=== PATIENT | male | born 2000 | race Caucasian/White ===

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

== ENCOUNTER 2020-02-20 15:15 | Emergency (ER) | payer OTHER ==
--- NOTE | 2020-02-20 15:26 | ED ---
GI/ HPI - HPI Summary HPI Summary: Pt. is a 19 y.o male who presents to the ER for left testicular pain that started today. Pt. states he noticed a mild pain in his left testicle that increased throughout the day. Pt. notes intermittent dysuria and penile discharge as well. Denies fever, abd. pain. Notes nausea. Sxs are moderate in severity. No current modifying factors. - History of Current Complaint Chief Complaint: EDUrogenitalProblems Time Seen by Provider: 02/20/20 15:24 Stated Complaint: PAIN IN LT TESTICLE PER PT Hx Obtained From: Patient Pain Intensity: 6 - Allergy/Home Medications Allergies/Adverse Reactions: Allergies Allergy/AdvReac Type Severity Reaction Status Date / Time No Known Allergies Allergy Verified 02/20/20 15:20 Home Medications: Home Medications DOXYcycline CAP(*) [DOXYcycline 100MG CAP(*)] 100 mg PO BID #20 cap 02/20/20 [Rx ] PMH/Surg Hx/FS Hx/Imm Hx Previously Healthy: Yes Endocrine/Hematology History: Denies: Hx Diabetes, Hx Thyroid Disease Cardiovascular History: Denies: Hx Hypertension Respiratory History: Denies: Hx Asthma, Hx Chronic Obstructive Pulmonary Disease (COPD) GI History: Denies: Hx Ulcer Infectious Disease History: No Infectious Disease History: Denies: Hx Hepatitis, Hx Human Immunodeficiency Virus (HIV), Traveled Outside the [place] in Last 30 Days - Family History Known Family History: Positive: None - Denies FHx, Non-Contributory Negative: Cardiac Disease, Hypertension, Diabetes - Social History Occupation: Unemployed Lives: With Family Alcohol Use: Rare Hx Substance Use: Yes Substance Use Type: Reports: Marijuana Substance Use Comment - Amount & Last Used: weekly Hx Tobacco Use: No Smoking Status (MU): Never Smoked Tobacco Review of Systems Constitutional: Negative Negative: Fever Positive: Nausea. Negative: Abdominal Pain, Vomiting Positive: dysuria, other - left testicular pain Skin: Negative Negative: Rash All Other Systems Reviewed And Are Negative: Yes Physical Exam Triage Information Reviewed: Yes Vital Signs On Initial Exam: Initial Vitals Temp Pulse Resp BP Pulse Ox 98.4 F 82 16 159/87 97 02/20/20 15:18 02/20/20 15:18 02/20/20 15:18 02/20/20 15:18 02/20/20 15:18 Vital Signs Reviewed: Yes Appearance: Positive: Well-Appearing - Pt. lying on bed in NAD. Skin: Positive: Warm, Dry Head/Face: Positive: Normal Head/Face Inspection Eyes: Positive: Normal, EOMI Neck: Positive: Supple Respiratory/Lung Sounds: Positive: Clear to Auscultation Abdomen Description: Positive: Nontender, Soft Male Genital Exam: Positive: Other - Exam performed with pt.'s nurse in room, Marisela Martinez. Uncircumcised penis without erythema or edema. Tenderness along lateral left testicle. No edema. No rash. No penile dc noted. Neurological: Positive: Normal, CN Intact II-III Psychiatric: Positive: Affect/Mood Appropriate Procedures - Sedation Patient Received Moderate/Deep Sedation with Procedure: No Diagnostics - Vital Signs Vital Signs Temp Pulse Resp BP Pulse Ox 02/20/20 15:18 98.4 F 82 16 159/87 97 - Laboratory Lab Statement: Any lab studies that have been ordered have been reviewed, and results considered in the medical decision making process. GIGU Course/Dx - Course Course Of Treatment: Pt. with testicular pain. he notes intermittent discharge and dysuria. Exam unremarkable other than mild tenderness of left testicle. US per radiology: IMPRESSION: Findings consistent with hepatic steatosis. No abnormal masses or fluid. collections are noted. Diverticulosis without definite evidence of diverticulitis. Pending GC/chlamydia. U/A shows large bacteria and WBC. Suspect STI but possible uti. Will given IM rocephin and keep on a course of doxycyline. Pt. will f.u with pcp and return to er for increased pain, swelling, fever, or if concerned. NSAIDS, ice and elevation. To avoid sexaul contact until sxs resolve. Pt. understands and agrees with plan. - Diagnoses Differential Diagnoses - Male: STD, Testicular Torsion, Urethritis, Urinary Tract Infection Provider Diagnoses: Testicular pain, Sexually transmissible disease, Suspected UTI Discharge ED - Sign-Out/Discharge Documenting (check all that apply): Patient Departure - Discharge Plan Condition: Good Disposition: HOME Prescriptions: DOXYcycline CAP(*) [DOXYcycline 100MG CAP(*)] 100 mg PO BID #20 cap Patient Education Materials: Sexually Transmitted Diseases (ED), Urinary Tract Infection in Men (ED), Testicle Pain (ED) Referrals: El GARZA,Cookie Soriano [Medical Doctor] - Additional Instructions: Schedule a follow up appointment with your PCP within 2-3 days if pain persist Take antibiotic as directed Ice intermittently Ibuprofen for pain as directed Avoid sexual interaction until symptoms resolved Will call if culture results are positive Return to ER for increased pain, vomiting, fever, or if concerned - Billing Disposition and Condition Condition: GOOD Disposition: Home
[2020-02-20] MEDS ORDERED: Ibuprofen TAB* 800 MG PO ONE (15:36)
[2020-02-20 16:42] LABS: Urine Appearance Turbid; Urine Bilirubin Negative (Negative); Urine Blood 3+ (Negative); Urine Color Yellow; Urine Glucose Negative (Negative); Urine Ketones Negative (Negative); Urine Nitrite Negative (Negative); Urine Protein 1+(30 mg/dL) (Negative); Urine Specific Gravity 1.019 (1.010-1.030); Urine Urobilinogen Negative (Negative)
[2020-02-20 16:48] LABS: Urine Bacteria 3+ (Absent); Urine Red Blood Cell 3+(>10/hpf) (Absent); Urine White Blood Cell 3+(>20/hpf) (Absent)
[2020-02-20] MEDS ORDERED: cefTRIAXone VIAL(*) 250 MG VIAL IM ONE (16:55)
[2020-02-20] MEDS ORDERED: Lidocaine 1% MPF ** 5 ML VIAL IM ONE (16:55)
[2020-02-20] MEDS ORDERED: Azithromycin TAB* 250 MG PO ONE (16:55)
[2020-02-20 17:06] LABS: HIV 4th Generation Nonreactive (Nonreactive)
[2020-02-20] MEDS ORDERED: DOXYcycline CAP(*) 100 MG PO ONE (17:07)
[2020-02-20 17:28] VITALS: BP 130/76
[2020-02-21 13:56] LABS: Chlamydia trachomatis NAA Negative (Negative); Neisseria gonorrhoeae (GC) NAA Negative (Negative)
== END 2020-02-20 17:25 | disposition home or self-care (01) ==
LOC: ED 15:15
DX: N50.812 Left testicular pain (principal); R11.0 Nausea; A64 Unspecified sexually transmitted disease
CPT/HCPCS: 36415; 76870; 81003; 81015; 87086; 87389; 87491; 87591; 96372; 99283; A9270-GY; J0696